=== PATIENT | female | born 1980 | race African-American/Black ===

== ENCOUNTER 2023-11-13 11:33 | Emergency (ER) | payer OTHER ==
[~2023-11-13] VITALS: Ht 180.3 cm; Wt 56.8 kg
[2023-11-13 12:09] VITALS: BP 111/99; PULSE 104; RESP 14; TEMP 98.1
== END 2023-11-13 14:13 | disposition left against medical advice (07) ==
LOC: EMS 11:33
DX: R56.9 Unspecified convulsions (principal); Z53.21 Procedure and treatment not carried out due to patient leaving prior to being seen by health care provider

== ENCOUNTER 2023-11-14 14:48 | Inpatient (IN) | payer OTHER ==
[~2023-11-14] VITALS: Ht 180.3 cm; Wt 64.7 kg
[2023-11-14] MEDS ORDERED: SODIUM CHLORIDE 0.9% 1,000 ML IV ONE (16:00)
[2023-11-14 16:06] LABS: BASOPHILS % (AUTO) 1.1 % (0.0-2.0); EOSINOPHILS % (AUTO) 1.2 % (1.0-6.0); HEMATOCRIT 26.8 % (36-46); LYMPHOCYTES # (AUTO) 0.8 K/uL (1.0-4.8); LYMPHOCYTES % (AUTO) 19.6 % (22.0-44.0); MEAN CORPUSCULAR HEMOGLOBIN 38.3 pg (26.0-34.0); MEAN CORPUSCULAR HGB CONC 33.4 G/dL (31.0-37.0); MEAN CORPUSCULAR VOLUME 115 fL (80-100); MONOCYTES # (AUTO) 0.4 K/uL (0.1-1.0); MONOCYTES % (AUTO) 8.5 % (2.0-9.0); NEUTROPHILS % (AUTO) 69.6 % (40.0-70.0); PLATELET COUNT (AUTO) 121 K/uL (150-450); RED BLOOD CELL COUNT(AUTO) 2.34 MIL/uL (4.00-5.20); RED CELL DISTRIBUTION WIDTH 16.2 % (11.5-14.5); WHITE BLOOD COUNT (AUTO) 4.3 K/uL (4.5-11.0)
[2023-11-14 16:22] LABS: ANION GAP 13 mmol/L (8-16); CALCIUM, TOTAL 8.3 mg/dL (8.8-10.5); CARBON DIOXIDE 24 mmol/L (22-29); CHLORIDE 100 mmol/L (98-107); CREATININE 0.84 mg/dL (0.60-1.30); GLOMERULAR FILTR. RATE CALC > 60 mL/min (>60); GLUCOSE,RANDOM 99 mg/dL (70-110); POTASSIUM 4.2 mmol/L (3.5-5.1); SODIUM SERUM 137 mmol/L (136-145); UREA NITROGEN, BLOOD 15 mg/dL (7-18)
[2023-11-14 16:28] LABS: ALANINE AMINOTRANSFERASE 51 U/L (12-78); ALBUMIN 3.6 g/dL (3.4-5.0); ALKALINE PHOSPHATASE 141 U/L (46-116); ASPARTATE AMINOTRANSFERASE 125 U/L (15-37); BILIRUBIN,TOTAL 0.6 mg/dL (0.1-1.0); LIPASE 29 U/L (16-77); TOTAL PROTEIN, SERUM 7.8 g/dL (6.4-8.2)
[2023-11-14 16:29] LABS: ALCOHOL, BLOOD (SERUM) < 3 mg/dL (0-10)
[2023-11-14 17:12] LABS: RBC MORPHOLOGY COMMENT ABNORMAL RBC MORPH
[2023-11-14] MEDS: LORazepam 2 MG/ML VIAL IVP ONE (20:14)
[2023-11-14] MEDS: SODIUM CHLORIDE 0.9% 1,000 ML IV ONE (20:16)
[2023-11-14] MEDS: MAGNESIUM SULFATE 2 GM, MVI, ADULT NO.1 WITH VIT K 10 ML, THIAMINE 100 MG, FOLIC ACID 1... IV ONE (20:50)
[2023-11-14] MEDS ORDERED: ZOLPIDEM TARTRATE 5 MG TABLET PO PRN (21:15)
[2023-11-14] MEDS ORDERED: MAGNESIUM HYDROXIDE SUSPENSION 30 ML UDCUP PO PRN (21:15)
[2023-11-14] MEDS ORDERED: ACETAMINOPHEN 325 MG TABLET PO PRN (21:15)
[2023-11-14] MEDS ORDERED: ONDANSETRON HCL 4 MG/2 ML VIAL IVP PRN (21:15)
[2023-11-14] MEDS ORDERED: LORazepam 2 MG/ML VIAL IVP PRN (21:15)
[2023-11-14 22:29] LABS: COVID AG,FIA SOURCE NASAL SWAB
[2023-11-14 22:52] LABS: SARS-COV2 (COVID) ANTIGEN,FIA Negative (Negative)
[2023-11-14 23:41] VITALS: BP 171/114; PULSE 80; RESP 20; TEMP 98.3
[2023-11-14] MEDS: CloNIDine HCL 0.1 MG TABLET PO PRN (23:50)
[2023-11-15] VITALS (8 sets, daily range): BP systolic 148–177; BP diastolic 96–111; PULSE 72–84; RESP 18–20; TEMP 98.1–98.6
[2023-11-15] MEDS: FAMOTIDINE 20 MG TABLET PO SCH (08:01)
[2023-11-15] MEDS: MULTIVITAMINS WITH MINERALS, THERAPEUTIC TABLET PO SCH (08:01)
[2023-11-15 10:59] LABS: APPEARANCE,URINE CLEAR (CLEAR); BILIRUBIN,URINE NEGATIVE (NEGATIVE); COLOR,URINE LIGHT YELLOW (YELLOW); GLUCOSE, URINE (UA) NEGATIVE (NEGATIVE); LEUKOCYTE ESTERASE ,URINE TRACE (NEGATIVE); NITRATE,URINE NEGATIVE (NEGATIVE); OCCULT BLOOD,URINE LARGE (NEGATIVE); PH,URINE 6.5 (5.0-8.0); PROTEIN,URINE TRACE mg/dL (NEGATIVE); SPECIFIC GRAVITIY, URINE 1.014 (1.003-1.030); UROBILINOGEN,URINE <=1.0 mg/dL (<=1.0)
[2023-11-15 11:09] LABS: BACTERIA,URINE Moderate /HPF (None Seen); SQUAMOUS EPITHELIAL CELL,UR Many /LPF (None Seen)
[2023-11-15 11:17] LABS: PH,URINE DRUG SCREEN 6.5 (5.0-8.0)
[2023-11-15 11:34] LABS: ALCOHOL, URINE DRUG SCREEN NEGATIVE (NEGATIVE); AMPHET/METH SCREEN,URINE NEGATIVE (NEGATIVE); BARBITURATE SCREEN, URINE NEGATIVE (NEGATIVE); BENZODIAZEPINES SCREEN,URINE NEGATIVE (NEGATIVE); CANNABINOID SCREEN,URINE NEGATIVE (NEGATIVE); COCAINE SCREEN,URINE NEGATIVE (NEGATIVE); METHADONE SCREEN, URINE NEGATIVE (NEGATIVE); OPIATE SCREEN,URINE NEGATIVE (NEGATIVE); PHENCYCLIDINE SCREEN,URINE NEGATIVE (NEGATIVE)
[2023-11-15] MEDS: ATENOLOL 50 MG TABLET PO ONE (13:28)
[2023-11-15] MEDS: LOSARTAN POTASSIUM 50 MG TABLET PO SCH (13:28)
[2023-11-15] MEDS: NIFEdipine 30 MG ER TABLET PO ONE (19:58)
[2023-11-16 05:49] VITALS: BP 178/114; PULSE 76; RESP 20; TEMP 97.7
[2023-11-16 06:47] VITALS: BP 138/101; PULSE 72; RESP 20; TEMP 97.8
[2023-11-16 08:48] VITALS: BP 132/92; PULSE 74; RESP 18; TEMP 98.1
[2023-11-16] MEDS: ATENOLOL 50 MG TABLET PO SCH (10:06)
[2023-11-16] MEDS ORDERED: LORazepam 2 MG/ML VIAL IVP PRN (12:15)
[2023-11-16] MEDS: CefTRIAXone 1 GM/DEXTROSE 50 ML IV SCH (12:15)
[2023-11-16 18:04] VITALS: BP 147/91; PULSE 76; RESP 18; TEMP 98
[2023-11-16] MEDS: ChlordiazePOXIDE HCL 25 MG CAPSULE PO SCH (18:33)
[2023-11-17] MEDS ORDERED: MULTIVITAMINS, THERAPEUTIC TABLET PO SCH (09:00)
[2023-11-17] MEDS ORDERED: FOLIC ACID 1 MG TABLET PO SCH (09:00)
[2023-11-17] MEDS ORDERED: THIAMINE 100 MG TABLET PO SCH (09:00)
== END 2023-11-16 20:20 | disposition short-term general hospital (02) | DRG 207 ==
LOC: EMS 15:16 → 6N 21:38
PROVIDERS: ADMIT Internal Medicine; ATTEND Internal Medicine
DX: R00.2 Palpitations (principal); E43 Unspecified severe protein-calorie malnutrition; D61.818 Other pancytopenia; K70.30 Alcoholic cirrhosis of liver without ascites; K70.9 Alcoholic liver disease, unspecified; F10.239 Alcohol dependence with withdrawal, unspecified; N39.0 Urinary tract infection, site not specified; F41.9 Anxiety disorder, unspecified; I10 Essential (primary) hypertension; Z20.822 Contact with and (suspected) exposure to COVID-19; Z68.1 Body mass index [BMI] 19.9 or less, adult
CPT/HCPCS: 80053; 80307; 81001; 83690; 84703; 85025; 87086; 87186; 99285; G0480; J0696; J2060; J3411; J3475; J3490; J7030